=== PATIENT | female | born 1985 | race Caucasian/White ===

== ENCOUNTER → 2018-04-06 08:15 | Outpatient (CLI) | payer BC, SELFPAY ==
[2018-04-06 12:56] LABS: Anion Gap 10 (5-15); BUN 16 mg/dL (7-18); BUN/Creat Ratio 23.1 RATIO (10-20); Calcium,Total 8.8 mg/dL (8.5-10.1); Chloride 103 mmol/L (98-107); Cholesterol 174 mg/dL (200); Creatinine, Serum 0.69 mg/dL (0.55-1.02); EST Glomerular Filtration Rate 104 mL/min (>60); Est Glom Filt Rate - Afr Amer 126 mL/min (>60); Glucose 86 mg/dL (74-106); High Density Lipoprotein 53 mg/dL; Potassium 3.5 mmol/L (3.5-5.1); Sodium Level 141 mmol/L (136-145); Triglycerides 67 mg/dL; Very Low Density Lipoprotein 13 mg/dL (5-40)
--- OUTSIDE RECORDS SUMMARY | 2018-07-08 19:24 | XMS RPT_ITS ---
:06/28/1997 Author Organization [facility] Address [address] [place] [address] Phone Care Team Providers Name Role Phone Kathie SHER, Van Ramírez Unavailable Reason for Visit Reason For Visit Description Start Date Postop - 1st visit Preliminary reason for visit data, not yet signed by the author as of right wrist post Right wrist arthroscopic assited TFCC repair on 10/17/2017 Preliminary reason for visit data, not yet signed by the author as of Chief Complaint Chief Complaint Description Start Date right wrist post Right wrist arthroscopic assited TFCC repair on 10/17/2017 Preliminary chief complaint data, not yet signed by the author as of Instructions No information available. Plan of Care Type Date Detail Appointment 01:00 PM Van Vázquez MD, [address], [address], [place], [address], Appointment 02:30 PM Shayy Finch OTRL, [address], [place], [address], Appointment 09:15 AM Van Vázquez MD, [address], [address], [place], [address], Medications Medication Instructions Start Stop Generic Name NDC Provider Date Date OLGA 3-0.02 MG take 1 tablet DROSPIRENONE- [id number] Zaina TABS once daily 1 ETHINYL Atkins COUTURE ALTERATIONS DRESSMAKER ESTRADIOL Conditions or Problems Problem Name Problem Onset Status Entry Provider Comment Standard Annotate Code Date Date Description Complex tear 817244578 Active Van Z Triangular of triangular (SNOMED 10/29 10/[address] CT) tear e of right wrist, initial encounter 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 Other chronic 56712626 Active Van Z Pain in wrist pain (SNOMED 10/31 10/[address]) MD Pain in right 37025818 Active Van Z Pain in wrist wrist (SNOMED 10/31 10/[address]) Nontraumatic 73893687 Active Aric A Shoulder pain shoulder (SNOMED 06/18 06/18 Veale PAC pain, left CT) Other chronic 078246431 Active Dank R Chronic low pain (SNOMED 01/09 01/[address]) Low back pain 350294666 Active Dank R Chronic low (SNOMED 01/09 01/[address]) MD Allergies, Adverse Reactions, Alerts Observed no known allergies at Social History Concept Description Observation Name Observation Value Units Start Date Employment detail OCCUPATION#1 student Preliminary social history data, not yet signed by the author as of Vital Signs Date Name Value Unit Description BMI (Body Mass 22.05 kg/m2 Body Mass Index Index) [Ratio] Preliminary vital sign data, not yet signed by the author as of BP Diastolic 64 mm[Hg] blood pressure, diastolic Preliminary vital sign data, not yet signed by the author as of BP Systolic 101 mm[Hg] blood pressure, systolic Preliminary vital sign data, not yet signed by the author as of Heart Rate 82 /min pulse rate E&M Preliminary vital sign data, not yet signed by the author as of Height 65 [in_us] height E&M Preliminary vital sign data, not yet signed by the author as of Height 165 cm height in centimeters E&M Preliminary vital sign data, not yet signed by the author as of Weight Measured 132 [lb_av] weight E&M Preliminary vital sign data, not yet signed by the author as of Weight Measured 60 kg weight in kilograms E&M Preliminary vital sign data, not yet signed by the author as of Results Date Name Value Unit Range Flag Description Office Visit: Postop - 1st visit, Rm: 2 MEDS REVIEW Done Documentation of current medications (procedure) Preliminary observation data, not yet signed by the author as of Preliminary observation data, not yet signed by the author as of Clinical Summary: HMSPatientID GOP account number Procedures Code Procedure Name Date Entry Date L3982 MTC FRACTURE BRACE L3763 EWHO CUSTOM STATIC G8730 Pain assessment documented as positive - follow-up documented G8427 Current medications documented 1036F Tobacco screening was negative - non user G9459 Adolescent tobacco screening was negative - non user G8420 BMI documented within normal parameters - no follow-up plan is required G8783 Blood pressure within normal parameters - no follow-up required [facility]-[id number] Patient Encounter Medications Administered No information available. Immunizations No information available. Advance Directives There may be information available, but it has not been provided by the sender. Assessments There may be information available, but it has not been provided by the sender. Review of Systems There may be information available, but it has not been provided by the sender. Family History There may be information available, but it has not been provided by the sender. History of Past Illness There may be information available, but it has not been provided by the sender. History of Present Illness There may be information available, but it has not been provided by the sender.
--- OUTSIDE RECORDS SUMMARY | 2018-07-08 19:24 | XMS RPT_ITS ---
:1985 Author Organization [facility] Address [address] [place] [address] Phone Care Team Providers Name Role Phone Kathie SHER, Van Ramírez Unavailable Reason for Visit Reason For Visit Description Start Date New - 1st visit with practice Preliminary reason for visit data, not yet signed by the author as of right wrist cyst Preliminary reason for visit data, not yet signed by the author as of Chief Complaint Chief Complaint Description Start Date right wrist cyst Preliminary chief complaint data, not yet signed by the author as of Instructions Instruction Description Start Date Completed Plan of Care Type Date Detail Appointment 09:00 AM Van Vázquez MD, [address], [place], [address], Appointment 08:00 AM Van Vázquez MD, [address] [facility] [address], [address], [place], [address], Appointment 01:15 PM Van Vázquez MD, [address] , [address], [place], [address], Medications Medication Instructions Start Date Stop Date Generic Name NDC Provider Observed no known medications at Conditions or Problems Problem Problem Onset Status Entry Provider Comment Standard Annotate Name Code Date Date Description Ganglion 656461927 Active Van Ramírez Ganglion of cyst of (SNOMED CT) / Kathie wrist volar aspect of right wrist Allergies, Adverse Reactions, Alerts Observed no known allergies at Social History No information available. Vital Signs Date Name Value Unit Description BMI (Body Mass 18.91 kg/m2 Body Mass Index Index) [Ratio] Preliminary vital sign data, not yet signed by the author as of BP Diastolic 70 mm[Hg] blood pressure, diastolic Preliminary vital sign data, not yet signed by the author as of BP Systolic 108 mm[Hg] blood pressure, systolic Preliminary vital sign data, not yet signed by the author as of Heart Rate 64 /min pulse rate E&M Preliminary vital sign data, not yet signed by the author as of Height 62 [in_us] height E&M Preliminary vital sign data, not yet signed by the author as of Height 157 cm height in centimeters E&M Preliminary vital sign data, not yet signed by the author as of Weight Measured 103 [lb_av] weight E&M Preliminary vital sign data, not yet signed by the author as of Weight Measured 47 kg weight in kilograms E&M Preliminary vital sign data, not yet signed by the author as of Results Date Name Value Unit Range Flag Description Office Visit: New - 1st visit with practice, Rm: 5 MEDS REVIEW Done Documentation of current medications (procedure) Preliminary observation data, not yet signed by the author as of Preliminary observation data, not yet signed by the author as of Clinical Summary: HMSPatientID GOP account number Clinical Lists Update: Preload Extended NKMED T Documentation of current medications (procedure) SMOK STATUS never smoker Tobacco smoking status NHIS Clinical Summary: Scanned History Summary Fave [employer] I run around with my Exercise vein three year old comment daughter and 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 does that count!? DEP EXERCISE Yes data entered by patient, exercise history DEP DRUG USE No data entered by patient, drug (of abuse) use DEP SH CSMO never smoker data entered by patient, social history, current smoker ETOH PREGN 1 time per year alcohol use, during this 3+ETOHDAILY 1 drink per day consumes three or more drinks of alcohol (beer, wine, liquor) daily or almost daily ETOHPERFRM beer, wine, liquor adl form etoh alcohol performance DEP ETOH USE Yes data entered by patient, alcohol (ethanol or ETOH) use [place] 2 floors housing unit size (asthma environmental history, housing) (from single family to don't know) #DEP CHLDRN Yes Number of dependent children SWHOUTYPE house Housing Type: apartment, house, intermediate, trailer, none DEP SH MAST data entered by patient, social history, marital status DEP EMPLOYER employed data entered by patient, Employer Name DEP ALG LIST I don't have any Drug Data entered by Allergies patient, allergy list DEBPCURRMED I am not taking any Data Entered by medications, vitamins Patient, Current or supplements. Medications Taking BROTHERS A/D I do not have any brother(s) of brothers. My patient alive or brother(s)' health history is unknown. MOTHER A/D Alive mother of patient is alive or MOM HX COMM Uteran cancer mother's medical history, comments DEP MOM PMH Cancer data entered by patient, mother's medical history FATHER A/D Alive father of patient is alive or DEP DAD PMH High blood pressure data entered by patient, father's medical history DEP PMH AnxietyDepression data entered by patient, past medical history Procedures Code Procedure Name Date Entry Date CPT-90217 XR WRIST 3 VWS-RT G8730 Pain assessment documented as positive - follow-up documented G8427 Current medications documented 1036F Tobacco screening was negative - non user G8420 BMI documented within normal parameters - no follow-up plan is required G8783 Blood pressure within normal parameters - no follow-up required [facility]-[id number] Patient Encounter Medications Administered No information available. [...]
--- OUTSIDE RECORDS SUMMARY | 2018-07-08 19:24 | XMS RPT_ITS ---
:1985 Author Organization [place] Care Team Providers Name Role Phone Ann Burrell Attending Unavailable PROBLEMS PROBLEMS No Problem Records FoundPROCEDURES PROCEDURES No Procedure Records FoundRESULTS RESULTS BASIC METABOLIC Collected: 04/06/2018 Status: F Source: [place] PROFILE (BMP) 8:21 AM [facility] TYPE CODE TESTS RESULT OUT OF RANGE REFERENCE UNITS LAB L501.0100 74-106 mg/dL Normal GLU 86 Result Comment: Please note revised GLUCOSE reference range effective 2017. LAB L501.1000 7-18 mg/dL Normal BUN 16 LAB L501.1100 0.55-1.02 mg/dL Normal CREAT,SERUM 0.69 Result Comment: The validity of the calculated GFR AND GFRAA in patients over 70 years has not been determined. Clinical correlation is essential. LAB L501.1110 >60 mL/min Normal EST GFR 104 Result Comment: Non- GFR Calc LAB L501.1115 >60 mL/min Normal EST GFR - AA 126 Result Comment: GFR Calc LAB L501.1300 10-20 RATIO High BUN/CRE 23.1 LAB L501.2200 8.5-10.1 mg/dL CA Normal 8.8 LAB L501.5300 136-145 mmol/L NA Normal 141 LAB L501.5600 3.5-5.1 mmol/L K Normal 3.5 LAB L501.5900 98-107 mmol/L CL Normal 103 LAB L501.6100 21.0-32.0 mmol/L Normal CO2 28.0 LAB L501.6200 5-15 Normal GAP 10 Performed By: #### L500.2500, L500.4100 #### [facility] [address] [place], [address] LIPID PROFILE Collected: 04/06/2018 Status: F Source: [place] 8:21 AM [facility] TYPE CODE TESTS RESULT OUT OF RANGE REFERENCE UNITS LAB L501.4900 200 mg/dL Normal CHOL 174 Result Comment: <200 mg/dL Desirable 200-240 mg/dL Borderline >240 mg/dL High Risk LAB L501.5000 mg/dL Normal TRIG 67 Result Comment: The drugs N-Acetylcysteine and Metamizole may falsely depress this assay. Serum Triglycerides Reference Interval Normal <150 mg/dL Borderline high 150 - 199 mg/dL High 200 - 499 mg/dL Very High > or = 500 mg/dL LAB L501.6400 mg/dL Normal HDL 53 Result Comment: The drugs N-Acetylcysteine and Metamizole may falsely depress this assay. Reference Range HDL <40 mg/dL Low HDL Cholesterol HDL >or= 60 mg/dL High HDL Cholesterol LAB L501.6500 0-130 mg/dL Normal LDL 108 LAB L501.6600 5-40 mg/dL Normal VLDL 13 Performed By: #### L500.2500, L500.4100 #### [facility] [address] [place], [address] ALLERGIES ALLERGIES No Allergies Records FoundENCOUNTERS ENCOUNTERS ADMIT/DISCHARGE ACCOUNT ADMITTING ENCOUNTER LOCATION SOURCE NUMBER CLASS 04/06/2018 [id number] Ambulatory [address] ing:LAB.FUTUR Repository E PAYERS PAYERS ENCOUNTER GUARANTOR PAYER SUBSCRIBER SOURCE 04/06/2018 OBDULIO Mac Primary GALE [place] [id number] [facility] RT y Number: [address], [id number] [address]Asb: jasmin Date:[id number] [facility] [id number] [place] [address] () [id number]: 04/06/2018 Secondary [place] Insurance:SELF PAY [facility]: Effective Repository Date:2018-02-23
== END ==
PROVIDERS: Visit Provider Family Medicine
DX: Z00.00 Encounter for general adult medical examination without abnormal findings (principal)
CPT/HCPCS: 36415; 80048; 80061